=== PATIENT | male | born 1975 | race Caucasian/White ===

== ENCOUNTER 2019-09-23 15:33 | Emergency (ER) | payer SELFPAY ==
[2019-09-23 16:40] VITALS: BP 164/107; PULSE 68; RESP 20; TEMP 36.7; O2SAT 98; BMI 21.7
--- NOTE | 2019-09-23 17:34 | W.ED.DENTAL ---
HPI - Dental/Oral General: Chief complaint: Dental/Oral Stated complaint: DENTAL PAIN Time Seen by Provider: 09/23/19 17:32 Source: patient Mode of arrival: ambulatory Limitations: no limitations History of Present Illness: HPI Narrative: Patient comes in today with 4-day history of dental pain with swelling starting yesterday. Patient has a redness and swelling to the right lower jaw and gumline. Patient appears well. Patient appears in mild to moderate pain. Review of Systems General: Reports: 10 or more systems reviewed and unremarkable except in HPI and below ENMT: Reports: mouth pain PFSH ED PFSH: Statuses (acute, chronic, etc) shown below reflect problem list status as previously entered and may not be historically accurate Social History Smoking and tobacco status: light tobacco smoker Physical Exam Const: COMMON NORMALS: no apparent distress and oriented x3 GENERAL APPEARANCE: cooperative HENMT: COMMON NORMALS: normocephalic, external ears normal, EAC's normal, TM's normal bilaterally, external nose normal and moist oral mucous membranes HEAD & SCALP: normal to inspection and normocephalic FACE & SINUS: facial edema (right lower jaw) NOSE: external nose normal GENERAL EAR: hearing not grossly impaired EXTERNAL EAR: Yes external ears normal EXTERNAL AUDITORY CANAL: EAC's normal TYMPANIC MEMBRANE: TM's normal bilaterally MOUTH: oral and palatal mucosa abnormal (erythema right lower jaw, premolar) TEETH & GINGIVA: Yes other (multiple decay) THROAT: posterior oropharynx normal Eye: COMMON NORMALS: PERRL and EOMs intact bilaterally PUPIL: Yes PERRL Neck/C-Spine: COMMON NORMALS: full ROM and no lymphadenopathy Lymph: LYMPHATIC: no lymphedema noted Chest: COMMONS NORMALS: inspection of chest normal and palpation of chest normal Resp: COMMON NORMALS: normal respiratory effort and clear to auscultation bilaterally AUSCULTATION: clear to auscultation bilaterally Cardio: COMMON NORMALS: regular rate and regular rhythm RATE: regular rate RHYTHM: regular rhythm GI: COMMON NORMALS: normal to inspection, nondistended, normoactive bowel sounds and non-tender : COMMON NORMALS: Yes no CVA tenderness BLADDER/KIDNEY EXAM: Yes no CVA tenderness Back/Pelvis: COMMON NORMALS: no CVA tenderness and thoracic and lumbar spine normal to inspection Extremity: COMMON NORMALS: normal to inspection GENERAL: No edema Neuro: COMMON NORMALS: oriented x3, moves all extremities and no focal motor deficits Psych: COMMON NORMALS: mental status grossly normal and cooperative Skin: COMMON NORMALS: no rashes or lesions noted GENERAL SKIN EXAM: no rashes or lesions noted Course Vital Signs: Vital signs: Vital Signs Temperature 98.0 F 09/23/19 16:40 Pulse Rate 68 09/23/19 16:40 Respiratory Rate 20 H 09/23/19 16:40 Blood Pressure 164/107 09/23/19 16:40 Pulse Oximetry 98 09/23/19 16:40 MDM - Dental/Oral MDM Narrative: Medical decision making narrative: Patient comes in today with concerns for swelling to the right lower jaw. Patient reports pain about 1 week and now this yesterday he noticed swelling and increasing swelling today to the right lower jaw. Differential diagnosis includes dental abscess, Ludewig's angina, retropharyngeal abscess. Exam noted no significant swelling or airway obstruction, it was noted for patient to have some dental decay. Reviewed exam with patient with recommendations for treatment follow-up and return or definitive care with dentist. Patient reports understanding. Discharge Plan Discharge Patient Disposition: Home, Self-Care Clinical Impression: Dental abscess Condition: Stable Prescriptions: New clindamycin HCl 150 mg capsule 450 mg PO BID 7 Days Qty: 42 RF: 0 Lidocaine Viscous 2 % solution 10 ml MUCOUS MEM Q3H PRN (Reason: pain) Qty: 100 RF: 0 acetaminophen-codeine 300-30 mg tablet 1 tab PO Q6H PRN (Reason: pain) Qty: 7 RF: 0 No Action lisinopril-hydrochlorothiazide RF: 0 Referrals: Carla Duarte MD [Family Provider] - Discharge Diet: Usual diet Discharge Activity: Resume usual activity Patient Instructions: Dental Abscess (ED) Activity Restrictions/Additional Instructions: Good oral care Drink plenty of water with medications Follow-up with primary care as needed Follow-up with Dentist for definitive care Coding Level of Care Code ED Medicine Technologist for Chg Fwd Exam Problem Focused
[2019-09-23 17:38] VITALS: BP 160/92; PULSE 66; RESP 18; TEMP 36.5; O2SAT 99
[2019-09-23 18:07] VITALS: BP 160/92; PULSE 66; RESP 18; TEMP 36.4; O2SAT 99
== END 2019-09-23 17:50 | disposition home or self-care (01) ==
PROVIDERS: Emergency Provider Nurse Practitioner Family; Family Provider Family Medicine
DX: K04.7 Periapical abscess without sinus (principal); F17.210 Nicotine dependence, cigarettes, uncomplicated
CPT/HCPCS: 99281; 99283

== ENCOUNTER 2023-01-24 08:53 | Emergency (ER) | payer SELFPAY ==
[2023-01-24 09:05] VITALS: BP 180/110; PULSE 53; RESP 17; TEMP 36.4; O2SAT 97; BMI 23.0
--- NOTE | 2023-01-24 09:16 | ED_ITS ---
HPI - Dental/Oral General: Chief complaint: Dental/Oral Stated complaint: tooth pain Time Seen by Provider: 01/24/23 08:57 History of Present Illness: Patient is a 47-year-old male who comes to the ED with dental pain. Patient says his symptoms started approximately 2 days ago. Dental pain is located around top left jaw canine tooth. He is currently calling around to get scheduled with a dentist. Denies any fevers or trouble breathing. Associated symptoms: Denies fever(s) or odynophagia Review of Systems Const: Denies: fever(s), chills or fatigue Eyes: Denies: change in vision or eye discomfort ENMT: Reports: dental pain; Denies: throat pain, odynophagia, nasal discharge or nasal congestion Card: Denies: chest pain, palpitations, edema, swelling of feet/ankles, dyspnea on exertion or orthopnea Resp: Denies: dyspnea, productive cough or non-productive cough GI: Denies: abdominal pain, nausea, vomiting, diarrhea, constipation or hematochezia : Denies: flank pain, difficulty urinating, dysuria or hematuria Musc: Denies: neck pain, back pain or extremity swelling Skin/Breast: Denies: rash or new lesions Neuro: Denies: headache(s), numbness in extremities or weakness in extremities PFSH ED PFSH: Medical History (Updated 01/24/23 @ 14:30 by ARCHANA Mart) No pertinent family history Surgical History (Updated 01/24/23 @ 14:30 by ARCHANA Mart) No pertinent past surgical history Social History Smoking and tobacco status: light tobacco smoker Physical Exam Const: COMMON NORMALS: patient oriented x3 HENMT: COMMON NORMALS: normocephalic HEAD & SCALP: normocephalic MOUTH: Normal oral and palatal mucosa present TEETH & GINGIVA: Yes caries and Yes poor dentition THROAT: posterior oropharynx normal and uvula midline Neck/C-Spine: COMMON NORMALS: supple GENERAL: Yes normal visual inspection Resp: COMMON NORMALS: normal respiratory effort, No retractions, No use of accessory muscles and clear to auscultation bilaterally AUSCULTATION: clear to auscultation bilaterally Cardio: COMMON NORMALS: regular rate, regular rhythm, S1 normal heart sound present, S2 normal heart sound present, No gallops present (Cardio), No clicks present (Cardio), No murmurs present (Cardio) and Peripheral pulses 2+ throughout RATE: regular rate RHYTHM: regular rhythm HEART SOUNDS: S1 normal heart sound present and S2 normal heart sound present PERIPHERAL PULSES: Peripheral pulses 2+ throughout GI: COMMON NORMALS: Normal to inspection, nondistended, normoactive bowel sounds present, Soft to palpation, non-tender and no masses PALPATION: Yes Soft to palpation : COMMON NORMALS: Yes no CVA tenderness BLADDER/KIDNEY EXAM: Yes no CVA tenderness Back/Pelvis: COMMON NORMALS: no CVA tenderness Neuro: COMMON NORMALS: patient oriented x3 GAIT: Yes Normal gait present Course Vital Signs: Vital signs: Vital Signs Temperature 97.6 F 01/24/23 09:05 Pulse Rate 53 L 01/24/23 09:05 Respiratory Rate 17 01/24/23 09:05 Blood Pressure 180/110 01/24/23 09:05 Pulse Oximetry 97 01/24/23 09:05 Oxygen Delivery Me thod Room Air 01/24/23 09:05 MDM - Dental/Oral Medical Decision Making Patient is a 47-year-old male who comes to the ED with dental pain. Patient says his symptoms started approximately 2 days ago. Dental pain is located around top left jaw canine tooth. He is currently calling around to get scheduled with a dentist. Denies any fevers or trouble breathing. Vitals are stable. Patient has poor dentition and dental health with extensive dental caries throughout mouth with some gingival edema as well. Rest of exam is benign. Patient was diagnosed with pain due to dental caries and was discharged home with a prescription for clindamycin. Told to follow-up with dentist as soon as possible for further management of dental pain. Patient understood and agreed with plan. Discharge Plan Discharge Patient Disposition: Home Clinical Impression: Pain due to dental caries Condition: Stable Prescriptions: New clindamycin HCl 150 mg capsule 300 mg PO QID 7 Days Qty: 56 0RF No Action lisinopril-hydrochlorothiazide Lidocaine Viscous 2 % solution 10 ml MUCOUS MEM Q3H PRN (Reason: pain) Qty: 100 0RF Rx Instructions: hold in area of pain in mouth until relief then spit out acetaminophen-codeine 300-30 mg tablet 1 tab PO Q6H PRN (Reason: pain) Qty: 7 0RF Discharge Orders: Discharge ED (Routine); Ordered 01/24/23 Ordered By: Arnie Devlin Referrals: Carla Duarte MD [Primary Care Provider] - Discharge Diet: Regular Discharge Activity: Increase activity as tolerated Activity Restrictions/Additional Instructions: Follow-up with dentist as soon as possible to get dental pain treated. Take medications as prescribed. Return to the ER or your medical provider if condition worsens. Please read and understand discharge instructions. Thank you for choosing [facility] for your healthcare needs today. Please realize this is an emergency room and that we are providing you with a medical screening exam and this may not be complete and all inclusive of all the testing and or work up that you may need to determine your ailment or severity of your illness. It is very important that you follow up as instructed or that you return to the Emergency Department should you have concerns or if your condition changes or worsens in any way. Coding Level of Care Code ED Pipeline Systems Operator for Ayala Dupont
== END 2023-01-24 09:31 | disposition home or self-care (01) ==
PROVIDERS: Emergency Provider Physician Assistant; PCP Family Medicine
DX: K02.9 Dental caries, unspecified (principal)
CPT/HCPCS: 99283